=== PATIENT | female | born 1980 | race Caucasian/White ===

== ENCOUNTER 2018-05-18 20:35 | Emergency (ER) | payer OTHER ==
[2018-05-18] MEDS ORDERED: TORAdol 30 mg Injection IM ONE (20:59)
[2018-05-18] MEDS ORDERED: TORAdol 30 mg Injection ONE (21:02)
--- NOTE | 2018-05-18 21:02 | ERPHSYRPT ---
- History of Present Illness Time Seen by Provider: 05/18/18 20:54 Source: patient Exam Limitations: no limitations Patient Subjective Stated Complaint: patient having pain and burning during urination, urine is pink tinged she had a endometrial biopsy on 05/06/18 and began having irritation called dr to follow up they never called her back Triage Nursing Assessment: pt is alert and oriented x3, able to ambulate by self , gait is steady, bowels sounds present x4, lung sounds clear. patient states painfull and burning on urination and does a few droplets at a time. used cranberry juice for a couple days and it went away but came back. Physician History: 38-year-old white female arrives with complaints of dysuria some blood in her urine some suprapubic pain symptoms going on 15 for 12 days. Patient has not had any nausea vomiting no flank pain no fevers. Patient did have an endometrial biopsy on 06 May. Past medical history includes fibromyalgia, osteoarthritis, asthma, cholecystectomy Social history patient denies tobacco alcohol or illicit drug use Timing/Duration: day(s) (12 days) Severity: moderate Modifying Factors: Improves With: nothing Associated Symptoms: abdominal pain (suprapubic pain), other (dysuria), No nausea, No vomiting, No shortness of breath, No heartburn, No diaphoresis, No cough, No chills, No chest pain, No fever, No headaches, No loss of appetite, No malaise, No rash, No syncope, No seizure, No weakness Allergies/Adverse Reactions: No Known Drug Allergies Allergy (Unverified 07/10/13 09:09) Home Medications: Albuterol Sulfate [Proair Hfa] 07/10/13 [History] Amitriptyline HCl 10 mg [Elavil 10 mg] 10 mg PO DAILY 09/28/16 [History] Hx Tetanus, Diphtheria Vaccination/Date Given: Yes Hx Influenza Vaccination/Date Given: No Hx Pneumococcal Vaccination/Date Given: No Immunizations Up to Date: Yes - Review of Systems Constitutional: No Fever, No Chills Eyes: No Symptoms Ears, Nose, & Throat: No Symptoms Respiratory: No Cough, No Dyspnea Cardiac: No Chest Pain, No Edema, No Syncope Abdominal/Gastrointestinal: Abdominal Pain (suprapubic pain), No Nausea, No Vomiting, No Diarrhea, No Constipation, No Hematemesis, No Hematochezia, No Melena, No Dysphagia, No Appetite Changes Genitourinary Symptoms: Dysuria, Hematuria, No Frequency, No Hesitancy, No Incontinence, No Urgency, No Urinary Retention, No Flank Pain, No Menorrhagia, No , No Vaginal Bleeding Musculoskeletal: No Back Pain, No Neck Pain Skin: No Rash Neurological: No Dizziness, No Focal Weakness, No Sensory Changes Psychological: No Symptoms Endocrine: No Symptoms All Other Systems: Reviewed and Negative - Past Medical History Pertinent Past Medical History: Yes Neurological History: No Pertinent History Cardiac History: No Pertinent History Respiratory History: Asthma Endocrine Medical History: No Pertinent History Musculoskeletal History: Osteoarthritis - Past Surgical History Past Surgical History: Yes Other Surgical History: GALLBLADDER - Social History Smoking Status: Never smoker Exposure to second hand smoke: No Drug Use: none Patient Lives Alone: No - Female History Hx Now: No - Nursing Vital Signs Nursing Vital Signs: Initial Vital Signs Temperature 97.9 F 05/18/18 20:36 Pulse Rate 112 H 05/18/18 20:36 Respiratory Rate 18 05/18/18 20:36 Blood Pressure 127/106 05/18/18 20:36 O2 Sat by Pulse Oximetry 97 05/18/18 20:36 Pain Scale Pain Intensity 4 - Physical Exam General Appearance: mild distress, obese Eye Exam: PERRL/EOMI, eyes nml inspection Ears, Nose, Throat Exam: normal ENT inspection, TMs normal, pharynx normal, moist mucous membranes Neck Exam: normal inspection, non-tender, supple, full range of motion Respiratory Exam: normal breath sounds, lungs clear, No respiratory distress Cardiovascular Exam: regular rate/rhythm Gastrointestinal/Abdomen Exam: soft, normal bowel sounds, No tenderness, No mass Back Exam: normal inspection, normal range of motion, No CVA tenderness, No vertebral tenderness Extremity Exam: normal inspection, normal range of motion, pelvis stable Neurologic Exam: alert, oriented x 3, cooperative, crane rigger II-XII nml as tested, normal mood/affect, nml cerebellar function, nml station & gait, sensation nml, No motor deficits Skin Exam: normal color, warm, dry, No rash SpO2 Interpretation: normal (97%) SpO2: 97 Oxygen Delivery: Nasal Cannula - Course Nursing assessment & vital signs reviewed: Yes Ordered Tests: Active Orders 24 hr Category Date Time Status IV Insertion STAT Care 05/18/18 21:49 Active CBC W DIFF Stat Lab 05/18/18 21:23 Completed CMP Stat Lab 05/18/18 21:23 Completed CULTURE,URINE Stat Lab 05/18/18 21:40 Received HCG QUALITATIVE,SERUM Stat Lab 05/18/18 21:23 Completed UA W/ MICROSCOPIC Stat Lab 05/18/18 21:40 Completed Medication Summary Discontinued Medications Generic Name Dose Route Start Last Admin Trade Name Estefaina PRN Reason Stop Dose Admin Sodium Chloride 1,000 mls @ 999 mls/hr 05/18/18 21:49 05/18/18 22:09 Sodium Chloride 0.9% 1000 Ml IV 05/18/18 22:49 999 mls/hr .Q1H1M STA Administration Sodium Chloride Confirm 05/18/18 22:08 Sodium Chloride 0.9% 1000 Ml Administered 05/18/18 22:09 Dose 1,000 mls @ ud .ROUTE .STK-MED ONE Ceftriaxone Sodium/Dextrose 1 g in 50 mls @ 100 mls/hr 05/18/18 22:15 22:20 Rocephin 1 Gm-D5w 50 Ml Bag IV 05/18/18 22:44 1 mls/hr STAT STA 1 mls/hr Administration Ceftriaxone Sodium/Dextrose Confirm 05/18/18 22:19 Rocephin 1 Gm-D5w 50 Ml Bag Administered 05/18/18 22:20 Dose 1 g in 50 mls @ ud IV .STK-MED ONE Ketorolac Tromethamine 60 mg 05/18/18 20:59 05/18/18 21:06 Toradol 30 Mg Injection IM 05/18/18 21:00 60 mg STAT ONE Administration Ketorolac Tromethamine Confirm 05/18/18 21:02 Toradol 30 Mg Injection Administered 05/18/18 21:03 Dose 60 mg .ROUTE .STK-MED ONE Lab/Rad Data: Laboratory Result Diagrams 05/18/18 21:23 05/18/18 21:23 Laboratory Results 05/18/18 05/18/18 05/18/18 Range/Units 21:40 21:23 21:23 WBC (4.0-10.5) K/mm3 RBC (4.1-5.4) M/mm3 Hgb (12.0-16.0) gm/dl Hct (35-47) % MCV (78-100) fl MCH (26-32) pg MCHC (32-36) g/dl RDW (11.5-14.0) % Plt Count (150-450) K/mm3 MPV (6-9.5) fl Gran % (36.0-66.0) % Eos # (Auto) (0-0.5) Absolute Lymphs (auto) (1.0-4.6) Absolute Monos (auto) (0.0-1.3) Lymphocytes % (24.0-44.0) % Monocytes % (0.0-12.0) % Eosinophils % (0.00-5.0) % Basophils % (0.0-0.4) % Absolute Granulocytes (1.4-6.9) Basophils # (0-0.4) Sodium 139 (137-145) mmol/L Potassium 4.1 (3.5-5.1) mmol/L Chloride 103 (98-107) mmol/L Carbon Dioxide 28 (22-30) mmol/L Anion Gap 13.2 (5-15) MEQ/L BUN 9 (7-17) mg/dL Creatinine 0.88 (0.52-1.04) mg/dL Estimated GFR > 60.0 ML/MIN Glucose 98 (74-106) mg/dL Calcium 9.8 (8.4-10.2) mg/dL Total Bilirubin 0.30 (0.2-1.3) mg/dL AST 18 (14-36) U/L ALT 17 (0-35) U/L Alkaline Phosphatase 89 (38-126) U/L Serum Total Protein 7.7 (6.3-8.2) g/dL Albumin 4.6 (3.5-5.0) g/dL Serum , Qual NEGATIVE (Negative) Ur Collection Type CLEAN CATCH Urine Color LT.YELLOW (YELLOW) Urine Appearance CLEAR (CLEAR) Urine pH 6.0 (5-6) Ur Specific [place] 1.000 (1.005-1.025) Urine Protein TRACE (Negative) Urine Ketones NEGATIVE (NEGATIVE) Urine Blood 250 (0-5) Phillip/ul Urine Nitrite NEGATIVE (NEGATIVE) Urine Bilirubin NEGATIVE (NEGATIVE) Urine Urobilinogen NORMAL (0-1) mg/dL Ur Leukocyte Esterase 2+ (NEGATIVE) Urine Microscopic RBC 2-5 (0-2) /HPF Urine Microscopic WBC 50-100 (0-5) /HPF Ur Epithelial Cells FEW (FEW) /HPF Urine Bacteria FEW (NEGATIVE) /HPF Urine Culture Reflexed YES (NO) Urine Glucose NEGATIVE (NEGATIVE) mg/dL Specimen Received 05/18/18205805/18/18 Range/Units 21:23 WBC 15.9 H (4.0-10.5) K/mm3 RBC 4.66 (4.1-5.4) M/mm3 Hgb 12.4 (12.0-16.0) gm/dl Hct 37.9 (35-47) % MCV 81.3 (78-100) fl MCH 26.6 (26-32) pg MCHC 32.7 (32-36) g/dl RDW 14.0 (11.5-14.0) % Plt Count 327 (150-450) K/mm3 MPV 8.6 (6-9.5) fl Gran % 72.2 H (36.0-66.0) % Eos # (Auto) 0.14 (0-0.5) Absolute Lymphs (auto) 3.51 (1.0-4.6) Absolute Monos (auto) 0.73 (0.0-1.3) Lymphocytes % 22.0 L (24.0-44.0) % Monocytes % 4.6 (0.0-12.0) % Eosinophils % 0.9 (0.00-5.0) % Basophils % 0.3 (0.0-0.4) % Absolute Granulocytes 11.52 H (1.4-6.9) Basophils # 0.04 (0-0.4) Sodium (137-145) mmol/L Potassium (3.5-5.1) mmol/L Chloride (98-107) mmol/L Carbon Dioxide (22-30) mmol/L Anion Gap (5-15) MEQ/L BUN (7-17) mg/dL Creatinine (0.52-1.04) mg/dL Estimated GFR ML/MIN Glucose (74-106) mg/dL Calcium (8.4-10.2) mg/dL Total Bilirubin (0.2-1.3) mg/dL AST (14-36) U/L ALT (0-35) U/L Alkaline Phosphatase (38-126) U/L Serum Total Protein (6.3-8.2) g/dL Albumin (3.5-5.0) g/dL Serum , Qual (Negative) Ur Collection Type Urine Color (YELLOW) Urine Appearance (CLEAR) Urine pH (5-6) Ur Specific [place] (1.005-1.025) Urine Protein (Negative) Urine Ketones (NEGATIVE) Urine Blood (0-5) Phillip/ul Urine Nitrite (NEGATIVE) Urine Bilirubin (NEGATIVE) Urine Urobilinogen (0-1) mg/dL Ur Leukocyte Esterase (NEGATIVE) Urine Microscopic RBC (0-2) /HPF Urine Microscopic WBC (0-5) /HPF Ur Epithelial Cells (FEW) /HPF Urine Bacteria (NEGATIVE) /HPF Urine Culture Reflexed (NO) Urine Glucose (NEGATIVE) mg/dL Specimen Received - Progress Progress: improved Progress Note: 05/18/18 22:16 Patient with 50-100 white cells per high-power field white count 15,000 patient feeling much better at this time Will go ahead and give patient Rocephin 1 g IV she is receiving IV normal saline 05/18/18 22:51 Patient is feeling much better after IV normal saline Rocephin and Toradol. Will plan to discharge patient Will send home with the Bactrim DS one orally twice a day. As well as [place] for pain. Patient will need to follow-up with her family doctor. She is to return for acute distress or for severe symptoms. - Departure Time of Disposition: 22:52 Departure Disposition: Home Clinical Impression: Abdominal pain Qualifiers: Abdominal location: lower abdomen, unspecified Qualified Code(s): R10.30 - Lower abdominal pain, unspecified UTI (urinary tract infection) Qualifiers: Urinary tract infection type: site unspecified Hematuria presence: without hematuria Qualified Code(s): N39.0 - Urinary tract infection, site not specified Condition: Fair Critical Care Time: No Referrals: YAZMIN BRIGGS [Primary Care Provider] - Additional Instructions: Return home. Plenty of fluids clear fluids only 24 hours if abdominal pain. [place] as prescribed. Bactrim as prescribed. Follow-up with your family doctor. Return for acute distress or for severe symptoms. Prescriptions: Hydrocodone/Acetaminophen [[place] 5-325 Tablet] 1 tab PO Q4-6HPRN PRN #10 tablet MDD 6 tablets PRN Reason: Pain Smz/Tmp Ds Tablet [Bactrim Ds Tablet] 1 tab PO BID #20 tablet
[2018-05-18 21:30] LABS: BASOPHIL % 0.3 % (0.0-0.4); Basophil (Absolute #) 0.04 (0-0.4); Eosinophil % 0.9 % (0.00-5.0); Eosinophil (Absolute #) 0.14 (0-0.5); Granulocyte Absolute (ANC) 11.52 (1.4-6.9); Granulocytes % 72.2 % (36.0-66.0); Hematocrit 37.9 % (35-47); Hemoglobin 12.4 gm/dl (12.0-16.0); Lymphocyte (Absolute #) 3.51 (1.0-4.6); Mean Cell Volume 81.3 fl (78-100); Mean Corpuscular Hemoglobin 26.6 pg (26-32); Mean Corpuscular Hgb Concent. 32.7 g/dl (32-36); Mean Platelet Volume 8.6 fl (6-9.5); Monocyte (Absolute #) 0.73 (0.0-1.3); Monocytes % 4.6 % (0.0-12.0); Platelet Count 327 K/mm3 (150-450); Red Blood Count 4.66 M/mm3 (4.1-5.4); White Blood Count 15.9 K/mm3 (4.0-10.5)
[2018-05-18 21:47] LABS: ALBUMIN 4.6 g/dL (3.5-5.0); ALKALINE PHOSPHATASE 89 U/L (38-126); ANION GAP 13.2 MEQ/L (5-15); BLOOD UREA NITROGEN 9 mg/dL (7-17); CHLORIDE 103 mmol/L (98-107); Calcium 9.8 mg/dL (8.4-10.2); Carbon Dioxide 28 mmol/L (22-30); Creatinine 1 0.88 mg/dL (0.52-1.04); Glucose 98 mg/dL (74-106); Potassium 4.1 mmol/L (3.5-5.1); SGOT/AST 18 U/L (14-36); SGPT/ALT 17 U/L (0-35); SODIUM 139 mmol/L (137-145); Total Protein 7.7 g/dL (6.3-8.2)
[2018-05-18] MEDS ORDERED: Sodium Chloride 0.9% 1000 ML 1,000 ML IV STA (21:49)
[2018-05-18 22:08] LABS: Appearance CLEAR (CLEAR); Bacteria FEW /HPF (NEGATIVE); Bilirubin NEGATIVE (NEGATIVE); Blood 250 Ery/ul (0-5); Epithelial Cells FEW /HPF (FEW); Glucose NEGATIVE (NEGATIVE); Ketones NEGATIVE (NEGATIVE); Leukocyte Esterase 2+ (NEGATIVE); Nitrite NEGATIVE (NEGATIVE); Protein,Urine Dip TRACE (Negative); Urobilinogen NORMAL mg/dL (0-1); WBC 50-100 /HPF (0-5)
[2018-05-18] MEDS ORDERED: Sodium Chloride 0.9% 1000 ML 1,000 ML ONE (22:08)
[2018-05-18] MEDS ORDERED: ROCEPHIN 1 Gm-D5w 50 ml Bag** 1 G/50 ML IVPB IV STA (22:15)
[2018-05-18] MEDS ORDERED: ROCEPHIN 1 Gm-D5w 50 ml Bag** 1 G/50 ML IVPB IV ONE (22:19)
[2018-05-18] MEDS ORDERED: NORCO 5/325 MG PO ONE (22:55)
[2018-05-18] MEDS ORDERED: NORCO 5/325 MG ONE (22:59)
[2018-05-18 23:07] VITALS: BP 122/69; PULSE 82; O2SAT 100
== END 2018-05-18 23:08 | disposition home or self-care (01) ==
LOC: ED 20:35
DX: R10.30 Lower abdominal pain, unspecified (principal); N39.0 Urinary tract infection, site not specified; R30.0 Dysuria
CPT/HCPCS: 36000; 36415; 80053; 81000; 84703; 85025; 87077; 87086; 87186; 96365; 96372; 99284; J0696; J1885; A9270-GY